=== PATIENT | male | born 1945 | race Caucasian/White ===

== ENCOUNTER 2020-03-18 08:26 | Emergency (ER) | payer MEDICARE ==
[~2020-03-18] VITALS: Ht 195.6 cm; Wt 111.9 kg
[2020-03-18 08:30] VITALS: BP 182/98
--- NOTE | 2020-03-18 08:48 | NUR ---
MGLF THIS MORNING, DENIES LOC OR HITTING HIS HEAD. PT DENIES ANY BLOOD THINNERS OTHER THAN ASA. LEFT ELBOW +SWELLING, DISTAL CSM+
--- NOTE | 2020-03-18 09:33 | NUR ---
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
--- NOTE | 2020-03-18 09:46 | NUR ---
Patient given discharge instructions and prescription and they have confirmed that they understand the instructions, no questions. All patient belongings gathered by patient. Patient ambulatory with steady gait to discharge desk.
== END 2020-03-18 09:47 | disposition home or self-care (01) ==
LOC: ED 09:04
DX: M70.22 Olecranon bursitis, left elbow (principal); W01.0XXA Fall on same level from slipping, tripping and stumbling without subsequent striking against object, initial encounter; Y93.89 Activity, other specified; Y92.89 Other specified places as the place of occurrence of the external cause; Y99.8 Other external cause status
CPT/HCPCS: 99283